=== PATIENT | female | born 1965 | race Caucasian/White ===

== ENCOUNTER 2017-09-21 20:04 | Emergency (ER) | payer OTHER ==
[2017-09-21] MEDS ORDERED: predniSONE 20 MG TAB PO ONE (20:46)
--- NOTE | 2017-09-21 20:48 | EDPHY ---
H & P Stated Complaint: Sore throat, SHARMA, stiff neck, dizzy, nausea- concerned for meningitis Time Seen by Provider: 09/21/17 20:20 HPI/ROS: CHIEF COMPLAINT: Vertigo, tenderness HISTORY OF PRESENT ILLNESS: The patient is a 51-year-old female who is been complaining of mild tenderness for the last 4 months and intermittent vertigo over the last month and a half. Her symptoms seem to improve with Aj maneuver. She states that over the last day and half however it is returned and will not go away. She also has a mild headache and some stiffness in her neck and a sore throat. No fever. She was concerned that maybe she had a vestibular neuritis that is turned into meningitis. No altered mental status or lethargy. No nausea vomiting. No focal weakness or numbness or deficits. No facial pain. No double vision. She does not take aspirin. She has not experienced any hearing loss. Her tinnitus is not pulsatile. REVIEW OF SYSTEMS: Constitutional: denies: chills, fever, recent illness, recent injury EENTM: denies: blurred vision, double vision, nose congestion Respiratory: denies: cough, shortness of breath Cardiac: denies: chest pain, irregular heart rate, lightheadedness, palpitations Gastrointestinal/Abdominal: denies: abdominal pain, diarrhea, nausea, vomiting, blood streaked stools Genitourinary: denies: dysuria, frequency, hematuria, pain Musculoskeletal: denies: joint pain, muscle pain Skin: denies: lesions, rash, jaundice, bruising Neurological: See HPI denies: numbness, paresthesia, tingling, weakness Hematologic/Lymphatic: denies: blood clots, easy bleeding, easy bruising Immunologic/allergic: denies: HIV/AIDS, transplant EXAM: GENERAL: Well-appearing, well-nourished and in no acute distress. HEAD: Atraumatic, normocephalic. EYES: Nystagmus with fast component to the right Pupils equal round and reactive to light, extraocular movements intact, sclera anicteric, conjunctiva are normal. ENT: TMs normal, nares patent, oropharynx clear without exudates. Moist mucous membranes. Tinnitus in both ears according the patient NECK: Normal range of motion, supple without lymphadenopathy or JVD. LUNGS: Breath sounds clear to auscultation bilaterally and equal. No wheezes rales or rhonchi. HEART: Regular rate and rhythm without murmurs, rubs or gallops. ABDOMEN: Soft, nontender, normoactive bowel sounds. No guarding, no rebound. No masses appreciated. BACK: No CVA tenderness, no spinal tenderness, step-offs or deformities EXTREMITIES: Normal range of motion, no pitting or edema. No clubbing or cyanosis. NEUROLOGICAL: Cranial nerves II through XII grossly intact. Normal speech, normal gait. 5/5 strength, normal movement in all extremities, normal sensation PSYCH: Normal mood, normal affect. SKIN: Warm, dry, normal turgor, no visible rashes or lesions. Source: Patient Exam Limitations: No limitations - Personal History LMP (Females 10-55): Now Current Tetanus Diphtheria and Acellular Pertussis (TDAP): Yes - Medical/Surgical History Hx Asthma: No Hx Chronic Respiratory Disease: No Hx Diabetes: No Hx Cardiac Disease: No Hx Renal Disease: No Hx Cirrhosis: No Hx Alcoholism: No Hx HIV/AIDS: No Hx Splenectomy or Spleen Trauma: No Other PMH: BPPV/vertigo - Family History Significant Family History: No pertinent family hx - Social History Smoking Status: Never smoked Alcohol Use: Sober Drug Use: None Constitutional: Initial Vital Signs Temperature (C) 36.6 C 09/21/17 20:07 Heart Rate 75 09/21/17 20:07 Respiratory Rate 18 09/21/17 20:07 Blood Pressure 126/79 H 09/21/17 20:07 O2 Sat (%) 97 09/21/17 20:07 O2 Delivery Mode Room Air Allergies/Adverse Reactions: No Known Allergies Allergy (Unverified 09/21/17 20:07) Home Medications: Medication Instructions Recorded predniSONE 60 mg PO DAILY #15 tab 09/21/17 Medical Decision Making ED Course/Re-evaluation: The patient is unlikely to have bacterial meningitis. She is not febrile. Her headache is very mild. Her symptoms have persisted for several months. She is primarily complaining of persistent tinnitus and no vertigo. She states that it is controllable. She has not yet seen ENT. We discussed the differential including vestibular neuritis and my bronchitis as well as acoustic neuroma. Her tenderness is bilateral. She had normal head impulse testing but also had normal test of skew. I spoke with Perla Garcia from ENT. She does not feel that MRI is indicated at this point but would like to follow up with the patient tomorrow. She agrees with starting on a course of steroids. Patient and are happy with this plan and declines further workup or testing at this time. We discussed indications for returning. Differential Diagnosis: Partial list of the Differential diagnosis considered include but were not limited to; vestibular neuritis, BPPV, labyrinthitis and although unlikely based on the history and physical exam, I also considered acoustic neuroma, fistula, tumor, hemorrhage, dissection. I discussed these differential diagnoses and the plan with the patient as well as the usual and expected course. The patient understands that the diagnosis is provisional and that in medicine we are not always correct and that further workup is often warranted. Usual and customary warnings were given. All of the patient's questions were answered. The patient was instructed to return to the emergency department should the symptoms at all worsen or return, otherwise to followup with the physician as we discussed. - Data Points Medications Given: Discontinued Medications Prednisone (Prednisone) 60 mg PO EDNOW ONE Stop: 09/21/17 20:47 Last Admin: 09/21/17 20:58 Dose: Not Given Departure - Departure Disposition: Home, Routine, Self-Care Clinical Impression: Vertigo, Tinnitus of both ears Condition: Fair Instructions: Vertigo (DC), Tinnitus (ED) Additional Instructions: When you call for an appointment make sure they understand that we spoke with Perla Garcia and she would like to see or Tuesday. Referrals: SELINA RAMIREZ [Other] - As per Instructions Perla Garcia PA [Physician [employer] Grinder] - 1-2 days without fail Prescriptions: predniSONE 60 mg PO DAILY #15 tab
[2017-09-21 21:16] VITALS: BP 109/76
== END 2017-09-21 20:59 | disposition home or self-care (01) ==
DX: R42 Dizziness and giddiness (principal); H91.13 Presbycusis, bilateral
CPT/HCPCS: J7512